=== PATIENT | male | born 1955 | race Caucasian/White ===

== ENCOUNTER 2018-03-31 16:01 | Outpatient (CLI) | payer OTHER | END 2018-03-31 16:02 | disposition critical access hospital (66) | LOC: EMS 16:01 | PROVIDERS: ATTEND Surgery | DX: R55 Syncope and collapse (principal); S01.312A Laceration without foreign body of left ear, initial encounter; W18.39XA Other fall on same level, initial encounter; W22.8XXA Striking against or struck by other objects, initial encounter; Y92.000 Kitchen of unspecified non-institutional (private) residence as the place of occurrence of the external cause | CPT/HCPCS: A0425; A0427 ==

== ENCOUNTER 2018-03-31 16:25 | Emergency (ER) | payer OTHER ==
[2018-03-31] MEDS ORDERED: SODIUM CHLORIDE 0.9% 1,000 ML IV ONE (16:49)
--- NOTE | 2018-03-31 16:52 | ED Physician Documentation ---
PD HPI SYNCOPE - Stated complaint Stated Complaint: NEAR SYNCOPE - Chief complaint Chief Complaint: Neuro - History obtained from History obtained from: Patient, Family, EMS - History of Present Illness Witnessed: Witnessed Timing - onset: Today Duration: Minutes (1) Preceding symptoms: Light headed, Generalized weakness. No: Headache, Vision changes, Chest pain, Palpitations, Diaphoresis, Dyspnea, Abdominal pain, Nausea / vomiting Associated symptoms: No: Seizure, Incontinant of urine, Incontinant of stool, Headache, Vision changes, Chest pain, Palpitations, Diaphoresis, Dyspnea, Nausea / vomiting, Abdominal pain Injury occurred: Fell, Head injury (knocked a doorknob off the door). 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 He has had some upper respiratory infection symptoms along with increased coughing today, took cough medication this morning and including 2 tabs of dextromethorphan. He also has had a beer, a bloody Carmen and was drinking a bottle of wine with his friends when he had a syncopal event today. He was unconscious for approximately 1 minute per the . Did strike his head on the doorknob as he fell to the ground and knocked the doorknob off of the door. He denies any prior history of same. Currently he states he has a mild headache. Had just stood up and felt lightheaded and dizzy without palpitations or chest pain. Normal blood sugar with EMS. Feels better after IVF with EMS Review of Systems Ten Systems: 10 systems reviewed and negative Constitutional: denies: Fever, Chills Ears: denies: Ear pain Nose: denies: Rhinorrhea / runny nose, Congestion Cardiac: denies: Palpitations Respiratory: denies: Cough GI: denies: Abdominal Pain, Nausea, Vomiting, Diarrhea Skin: denies: Rash Musculoskeletal: denies: Back pain PD PAST MEDICAL HISTORY - Past Medical History Past Medical History: Yes Cardiovascular: Hypertension, High cholesterol - Past Surgical History Past Surgical History: Yes - Present Medications Home Medications: Ambulatory Orders Medication Instructions Recorded Confirmed Atorvastatin [Lipitor] 10 mg ORAL DAILY 03/31/18 03/31/18 Lisinopril 10 mg PO DAILY 03/31/18 03/31/18 Omeprazole 40 mg PO 03/31/18 amLODIPine [Norvasc] 2.5 mg PO ONCE 03/31/18 03/31/18 - Allergies Allergies/Adverse Reactions: Allergies Allergy/AdvReac Type Severity Reaction Status Date / Time No Known Drug Allergies Allergy Verified 03/31/18 16:31 - Social History Does the pt smoke?: No Smoking Status: Never smoker Does the pt drink ETOH?: Yes Does the pt have substance abuse?: No - Immunizations Immunizations are current?: Yes - POLST Patient has POLST: No PD ED PE NORMAL - Vitals Vital signs reviewed: Yes - General General: Alert and oriented X 3, No acute distress, Other (+ etoh smell) - HEENT HEENT: PERRL, Ears normal, Moist mucous membranes, Pharynx benign, Other (small hematoma to the L occiput. no palpable fractures) - Neck Neck: Supple, no meningeal sign, No bony TTP - Cardiac Cardiac: RRR, Strong equal pulses - Respiratory Respiratory: No respiratory distress, Clear bilaterally - Abdomen Abdomen: Soft, Non tender, Non distended - Back Back: No spinal TTP - Derm Derm: Warm and dry - Extremities Extremities: No deformity, No edema, No calf tenderness / cord - Neuro Neuro: Alert and oriented X 3, pet feeder 2-12 intact, No motor deficit, No sensory deficit Eye Opening: Spontaneous Motor: Obeys Commands Verbal: Oriented GCS Score: 15 - Psych Psych: Normal mood, Normal affect Results - Vitals Vitals: Vital Signs - 24 hr 03/31/18 03/31/18 03/31/18 16:26 17:41 18:34 Temperature 36.2 C L Heart Rate 79 74 Heart Rate [ 98 Sitting] Heart Rate [ 88 Standing] Heart Rate [ 88 Supine] Respiratory 12 16 Rate Blood Pressure 122/67 114/63 Blood Pressure 131/82 H [Sitting] Blood Pressure 143/74 H [Standing] Blood Pressure 124/73 [Supine] O2 Saturation 99 97 03/31/18 19:24 Temperature Heart Rate 85 Heart Rate [ Sitting] Heart Rate [ Standing] Heart Rate [ Supine] Respiratory 16 Rate Blood Pressure 139/89 H Blood Pressure [Sitting] Blood Pressure [Standing] Blood Pressure [Supine] O2 Saturation 98 Oxygen O2 Source Room air - EKG (time done) 1636 Rate: Rate (enter#) (80) Rhythm: NSR [place]: Normal Intervals: Prolonged [place] QRS: Normal Ischemia: Normal ST segments - Labs Labs: Laboratory Tests 03/31/18 03/31/18 03/31/18 17:05 17:05 17:05 WBC 8.0 RBC 4.48 L Hgb 14.1 Hct 41.1 L MCV 91.7 MCH 31.4 H MCHC 34.2 RDW 13.2 Plt Count 158 MPV 8.7 Neut # (Auto) 6.0 Lymph # (Auto) 1.3 L [place] # (Auto) 0.6 Eos # (Auto) 0.1 Baso # (Auto) 0.0 Absolute Nucleated RBC 0.00 Nucleated RBC % 0.0 Sodium 137 Potassium 3.8 Chloride 105 Carbon Dioxide 23 Anion Gap 9.0 BUN 22 H Creatinine 1.1 Estimated GFR (MDRD) 68 L Glucose 136 H Calcium 8.6 Total Bilirubin 0.8 AST 35 ALT 62 H Alkaline Phosphatase 75 Troponin I < 0.04 Total Protein 7.3 Albumin 4.1 Globulin 3.2 Albumin/Globulin Ratio 1.3 Lipase 23 Ethyl Alcohol 27.3 - Rads (name of study) head CT Radiology: Prelim report reviewed, EMP read contemporaneously, See rad report ( no acute abnormality) c- spine CT Radiology: Prelim report reviewed, EMP read contemporaneously, See rad report ( no acute abnormality) cxr 1 view Radiology: Prelim report reviewed, EMP read contemporaneously, See rad report ( Underpenetration of the left lung limits evaluation. Left lung mild to moderate airspace disease not excluded. Fullness of the left hilum, could represent a left hilar mass versus vessel overlap. An upright PA and lateral chest x-ray or chest CT with contrast could further evaluate these findings. ) cxr 2 view Radiology: Prelim report reviewed, EMP read contemporaneously, See rad report ( normal) PD MEDICAL DECISION MAKING - ED course Complexity details: reviewed results, re-evaluated patient, considered differential, d/w patient, d/w family ED course: Patient is a 62-year-old male who presents to the emergency department after a syncopal event today. No arrhythmias on telemetry. Feels better after IV fluids. May be secondary to his use of alcohol along with cold medication today. We did discuss observation in the hospital on telemetry monitoring but he does not want to do this and his family is comfortable monitoring him at home. He does understand that he could have had a lethal arrhythmia that we will be unable to detect if he does not stay in the hospital and he is comfortable assuming this risk. He will follow-up with his doctor for further evaluation and care. Patient counseled regarding signs and symptoms for which I believe and urgent re-evaluation would be necessary. Patient with good understanding of and agreement to plan and is comfortable going home at this time This document was made in part using voice recognition software. While efforts are made to proofread this document, sound alike and grammatical errors may occur. - Sepsis Event Vital Signs: Vital Signs - 24 hr 03/31/18 03/31/18 03/31/18 16:26 17:41 18:34 Temperature 36.2 C L Heart Rate 79 74 Heart Rate [ 98 Sitting] Heart Rate [ 88 Standing] Heart Rate [ 88 Supine] Respiratory 12 16 Rate Blood Pressure 122/67 114/63 Blood Pressure 131/82 H [Sitting] Blood Pressure 143/74 H [Standing] Blood Pressure 124/73 [Supine] O2 Saturation 99 97 03/31/18 19:24 Temperature Heart Rate 85 Heart Rate [ Sitting] Heart Rate [ Standing] Heart Rate [ Supine] Respiratory 16 Rate Blood Pressure 139/89 H Blood Pressure [Sitting] Blood Pressure [Standing] Blood Pressure [Supine] O2 Saturation 98 Oxygen O2 Source Room air Departure - Departure Disposition: 01 Home, Self Care Clinical Impression: Dehydration Syncope Qualifiers: Syncope type: unspecified Qualified Code(s): R55 - Syncope and collapse Condition: Good Instructions: ED Fainting Unkn Cause Follow-Up: your,doctor in 1 week [Other] Comments: Return if you worsen. Drink plenty of fluids. Follow up with your doctor for further care. Discharge Date/Time: 03/31/18 19:36
[2018-03-31 17:10] LABS: BASOPHILS % (AUTO) 0.4 %; EOSINOPHILS # (AUTO) 0.1 10^3/uL (0.0-0.7); EOSINOPHILS % (AUTO) 0.9 %; HGB - HEMOGLOBIN 14.1 g/dL (14.0-18.0); LYMPHOCYTES # (AUTO) 1.3 10^3/uL (1.5-3.5); MEAN CORPUSCULAR HEMOGLOBIN 31.4 pg (27.0-31.0); MEAN CORPUSCULAR HGB CONC 34.2 g/dL (32.0-36.0); MEAN CORPUSCULAR VOLUME 91.7 fL (80.0-94.0); MEAN PLATELET VOLUME 8.7 fL (7.4-11.4); MONOCYTES # (AUTO) 0.6 10^3/uL (0.0-1.0); MONOCYTES % (AUTO) 7.9 %; NEUTROPHILS % (AUTO) 74.8 %; PLT - PLATELET COUNT 158 10^3/uL (130-450); RED BLOOD COUNT 4.48 10^6/uL (4.70-6.10); RED CELL DISTRIBUTION WIDTH 13.2 % (12.0-15.0)
[2018-03-31 17:21] LABS: ALBUMIN 4.1 g/dL (3.2-5.5); ALBUMIN/GLOBULIN RATIO 1.3 (1.0-2.2); BILIRUBIN,TOTAL 0.8 mg/dL (0.2-1.0); CALCIUM 8.6 mg/dL (8.5-10.3); CREATININE 1.1 mg/dL (0.6-1.2); TOTAL PROTEIN 7.3 g/dL (6.7-8.2)
--- NOTE | 2018-03-31 17:32 | CT Report ---
EXAM: CT HEAD EXAM DATE: 03/31/2018 05:20 PM. CLINICAL HISTORY: Head injury, syncope. Hit left side of head, neck pain. COMPARISON: None. TECHNIQUE: Multiaxial CT images were obtained from the foramen magnum to the vertex. Reformats: Coron al. IV contrast: None. In accordance with CT protocol optimization, one or more of the following dose reduction techniques w ere utilized for this exam: automated exposure control, adjustment of mA and/or KV based on patient s ize, or use of iterative reconstructive technique. FINDINGS: Parenchyma: No intraparenchymal hemorrhage. No evidence of mass, midline shift, or CT findings of inf arction. Michaud-white differentiation is distinct. Extraaxial Spaces: Normal for age. No subdural or epidural collections identified. Ventricles: Normal in size and position. Sinuses and Orbits: Orbits appear unremarkable. Mild right sphenoid sinus mucosal thickening. Mastoid air cells appear clear. Bones: No evidence of fracture or calvarial defect. IMPRESSION: No acute or focal intracranial abnormality seen. [facility] Referring Provider Line: [phone] SITE ID: [id number]
--- NOTE | 2018-03-31 17:47 | CT Preliminary Report ---
Exam: CT CERVICAL SPINE W/O IMPRESSION: 1. No evidence for acute fracture. 2. Degenerative changes as above. [facility] SITE ID: [id number]
--- NOTE | 2018-03-31 17:54 | CT Report ---
EXAM: CT CERVICAL SPINE WITHOUT CONTRAST. DATE: 03/31/2018 05:20 PM. HISTORY: Syncope, neck injury. Trauma. Hit left side of head, neck pain. COMPARISONS: None. TECHNIQUE: Thin-section axial images were acquired of the cervical spine without contrast. Post-proce ssing: Coronal and sagittal reformats. Other: None. In accordance with CT protocol optimization, one or more of the following dose reduction techniques w ere utilized for this exam: automated exposure control, adjustment of mA and/or KV based on patient s ize, or use of iterative reconstructive technique. FINDINGS: [id number] degenerative disk disease at C3-C6, most severe at C5-C6 with moderate dis k height loss and moderate endplate anterior and posterior osteophytes. Minimal degenerative disease at C2-C3. Mild degenerative disk disease at C6-C7. Minimal degenerative disk disease at C7-T1. Modera te left C7-T1 and C6-C7 facet arthropathy. Otherwise mild diffuse facet arthropathy. No evidence for acute fracture. Minimal retrolisthesis of C5 on C6 most likely degenerative. Small chronic appearing bone fragment is seen at C1-C2 on the right side medial to the C2 lateral mas s. This measures 5 mm. No acute soft tissue findings are seen. IMPRESSION: 1. No evidence for acute fracture. 2. Degenerative changes as above. [facility] Referring Provider Line: [phone] SITE ID: [id number]
--- NOTE | 2018-03-31 18:00 | XRAY Preliminary Report ---
Exam: XR CHEST 1 VIEW X-RAY IMPRESSION: Underpenetration of the left lung limits evaluation. Left lung mild to moderate airspace disease not excluded. Fullness of the left hilum, could represent a left hilar mass versus vessel ove rlap. An upright PA and lateral chest x-ray or chest CT with contrast could further evaluate these fi ndings. [facility] SITE ID: [id number]
--- NOTE | 2018-03-31 18:00 | XRAY Report ---
EXAM: CHEST RADIOGRAPHY EXAM DATE: 03/31/2018 05:25 PM. CLINICAL HISTORY: Syncope. Productive cough for 3 days. COMPARISON: None. TECHNIQUE: 1 view. FINDINGS: Lungs/Pleura: Underpenetration of the left lung limits evaluation. Left lung mild to moderate airspac e disease not excluded. No pleural effusion on pneumothorax. Mediastinum: Fullness of the left hilum, could represent a left hilar mass versus vessel overlap. Nor mal heart size. IMPRESSION: Underpenetration of the left lung limits evaluation. Left lung mild to moderate airspace disease not excluded. Fullness of the left hilum, could represent a left hilar mass versus vessel ove rlap. An upright PA and lateral chest x-ray or chest CT with contrast could further evaluate these fi ndings. [facility] Referring Provider Line: [phone] SITE ID: [id number]
--- NOTE | 2018-03-31 18:44 | XRAY Report ---
EXAM: CHEST RADIOGRAPHY EXAM DATE: 03/31/2018 06:19 PM. CLINICAL HISTORY: Cough, syncope. COMPARISON: 03/31/2018. TECHNIQUE: 2 views. FINDINGS: Lungs/Pleura: No focal consolidation or evidence of edema. No pleural effusion or pneumothorax. Mediastinum: Normal cardiomediastinal contour. Other: Mild degenerative changes within the mid/lower thoracic spine. IMPRESSION: No acute cardiopulmonary abnormality. [facility] Referring Provider Line: [phone] SITE ID: [id number]
[2018-03-31 19:26] VITALS: BP 139/89
== END 2018-03-31 19:36 | disposition home or self-care (01) ==
LOC: EDBD → ED 16:25
DX: E86.0 Dehydration (principal); R55 Syncope and collapse; S00.83XA Contusion of other part of head, initial encounter; W18.39XA Other fall on same level, initial encounter; Y92.9 Unspecified place or not applicable; Y93.89 Activity, other specified
CPT/HCPCS: 36415; 70450; 71045; 71046; 72125; 80053; 80320; 83690; 84484; 85025; 93005; 96360; 96361; 99284